=== PATIENT | female | born 1965 ===

== ENCOUNTER 2023-12-16 17:28 | Emergency (ER) | payer MEDICAID, SELFPAY ==
--- NOTE | 2023-12-16 18:06 | ED.GENADULT ---
HPI - General Adult General Chief complaint: Wound/Laceration Stated complaint: face wound Time Seen by Provider: 12/16/23 22:50 Source: patient and family Mode of arrival: ambulatory Limitations: no limitations History of Present Illness ED Provider: Dr. Mazariegos HPI narrative: Patient with growth to face for a year. Today she accidentally ripped it off. States the growth has been growing rapidly recently. Onset (ago): month(s) Location: face Related Data Previous Rx's ?Medication ?Instructions ?Recorded bacitracin 500 unit/gram topical 1 appl topical Q8H #28 grams 12/16/23 ointment Allergies Allergy/AdvReac Type Severity Reaction Status Date / Time No Known Allergies Allergy Verified 12/16/23 18:11 Review of Systems Review of Systems: Yes all other systems are reviewed and are negative Neurologic: Denies Sensory deficit (Neuro) [facility] Social History Social History Advance Directives: No Advance Directives Information Provided: No Do you have a plan to hurt others: No Plan Physical Exam ED Vital Signs: Vital Signs - 24 hr 12/16/23 18:07 Temperature 98.3 F Pulse Rate 72 Respiratory Rate 18 Blood Pressure 139/76 Pulse Oximetry 97 Oxygen Delivery Method Room Air BMI result Body Mass Index 33.2 Const General: healthy appearing Nutritional Appearance: average body habitus Orientation/consciousness: oriented to person and patient oriented x3 Limitations: no limitations HENMT Head: Yes normal to inspection Ears: external ears normal General nose exam: Normal external nose present Mouth: Normal oral and palatal mucosa present and oropharynx normal Throat: Yes posterior oropharynx normal Eyes General: appearance normal, both eyes and all related structures Neck Neck: Yes normal visual inspection Chest Chest palpation & inspection: normal inspection of the chest Resp Auscultation: clear to auscultation bilaterally Cardio Jugular venous distension: no JVD Rate: regular rate Rhythm: regular rhythm Heart sounds: S1 normal heart sound present and S2 normal heart sound present GI Inspection: Yes normal to inspection Palpation (GI): Soft to palpation, nontender and No hepatosplenomegaly present Auscultation: normal bowel sounds General: Yes no CVA tenderness Back/Spine/Pelvis Back: no CVA tenderness Skin Other: right side of cheek with exophytic growth that is dangling from a base, slight bleeding Neuro General: oriented to person and patient oriented x3 Cranial nerves: Yes CN's II-XII intact bilaterally Motor exam (neuro): 5/5 motor strength present throughout Sensory Exam: No Sensory deficit (Neuro) Extrem General: Yes normal to inspection Psych Appearance: grossly normal Course Course Course Narrative: RME, this is a rapid medical exam performed by Demarcus Ovalle please refer to primary provider for complete H&P- 58 year old female presents for evaluation of growth to the right cheek. She has a large growth to the right cheek that has grown rapidly over the last 2 months. She was washing her face today and accidentally ripped the growth nearly off. Reevaluation(s) Reevaluation #1: PRocedure: patient prepped and drapped in sterile fashion, 1% lido used for anesthesia, 11blade used to remove lesion. Will send for pathology Time: 23:17 Medical Decision Making Differential Diagnosis Differential Diagnoses: The differential diagnosis associated with the presentation includes (seborrhea, basal cell ca) Independent Historian Clinical information obtained from an independent historian. History obtained from or confirmed by: Other (daughter) Tests considered The following testing was considered but not selected: will send specimen for pathology Discharge Plan Discharge Clinical Impression: Abnormal skin growth Patient Disposition: Home, Self-Care Additional Instructions: apply bacitracin twice a day must follow up with legal consultant shortly Prescriptions: New bacitracin 500 unit/gram ointment 1 appl topical Q8H Qty: 28 0RF Print Language: [place]
[2023-12-16 18:07] VITALS: BP 139/76; PULSE 72; RESP 18; TEMP 36.8; O2SAT 97; BMI 33.2
[2023-12-16] MEDS: Bacitracin Oint 0.9 GM PACKET 1 APPL TOPICAL (23:23)
[2023-12-16] MEDS: Lidocaine HCl 1%/Epi 1:100,000 10 ML VIAL SUBCUT (23:23)
[2023-12-16] MEDS: Diphth,Pertus(ACell),Tet Adult 0.5 ML SYRINGE IM (23:26)
[2023-12-16 23:49] VITALS: BP 132/60; PULSE 88; RESP 16; TEMP 36.8
== END 2023-12-16 23:53 | disposition home or self-care (01) ==
PROVIDERS: Emergency Provider Emergency Medicine
DX: L98.9 Disorder of the skin and subcutaneous tissue, unspecified (principal); Z23 Encounter for immunization
CPT/HCPCS: 88304; 88305; 90471; 90715; 99283; 99284